=== PATIENT | male | born 1955 | race African-American/Black ===

== ENCOUNTER 2017-07-01 14:00 | Emergency (ER) | payer MEDICARE, OTHER ==
[~2017-07-01] VITALS: Ht 170.2 cm; Wt 84.8 kg
[~2017-07-01 14:00] MED LIST: ASPI-630 PO; FENO134C10 PO; GLIM2TAB2 PO; HYDR-971 PO; IBUP-1060 PO; LISI2.5T PO; METF-153; METF500T4 PO; NAPR550T PO; SIMV40TA3 PO
[2017-07-01] MEDS ORDERED: 0.9 % SODIUM CHLORIDE 10 ML DISP.SYRIN. IV PRN (14:15)
--- NOTE | 2017-07-01 14:24 | PHYS DOC ---
Past Medical History Past Medical History: CAD, Diabetes-Type II, High Cholesterol, Other Additional Past Medical Histor: right leg fracture Past Surgical History: Other Additional Past Surgical Histo: inguinal hernia, heart cath Alcohol Use: None Drug Use: None Adult General Chief Complaint Chief Complaint: FLANK PAIN [facility] HPI This patient is a pleasant 62-year-old male with history of hypertension, type 2 diabetes on oral medications, history of heart disease presents with a three- week history of right flank pain. Patient says the flank pain began spontaneously at rest while he was laying down. Patient's flank pain is radiating from the lateral flank to the right lower abdomen. It is described as a dull aching is worse with movements and he cannot control. He describes some mild nausea without vomiting diarrhea or chills. He denies any UTI symptoms or urgency frequency or hematuria. He denies any fevers or rashes. Patient denies any direct trauma to his abdomen or pelvis. Patient denies any lightheaded or dizziness at this time. He has had chest pain the past but nothing in the last several weeks. He admits to no travel outside the country, no changes in medications, although his sugars been markedly elevated greater than 300. Patient's been taking his medications as prescribed. He has been taking Naprosyn with some degree of success that the pain will go with 4-6 hours in the return without change. my right lower quadrant/right flank pain differential diagnosis Acute pancreatitis. Appendicitis. Acute hepatitis. Peptic ulcer disease. Nonulcer dyspepsia. Irritable bowel disease. Functional gallbladder disorder. Sphincter of Oddi dysfunction. Diseases of the right kidney. Right-sided pneumonia. Viqq-Dmmg-Nvghqr syndrome Subhepatic or intraabdominal abscess. Perforated viscus. Cardiac ischemia. Black spider envenomation Pyonephritis, UTI, kidney stone. This is the differential diagnosis I considered upon arrival. l. Review of Systems Review of Systems Constitutional: Denies fever or chills [] Eyes: Denies change in visual acuity, redness, or eye pain [] HENT: Denies nasal congestion or sore throat [] Respiratory: Denies cough or shortness of breath [] Cardiovascular: No additional information not addressed in HPI [] GI: Denies abdominal pain, nausea, vomiting, bloody stools or diarrhea [] : Denies dysuria or hematuria [] Musculoskeletal: Denies back pain or joint pain [] Integument: Denies rash or skin lesions [] Neurologic: Denies headache, focal weakness or sensory changes [] Endocrine: Denies polyuria or polydipsia [] Current Medications Current Medications Current Medications Medications (Trade) Dose Ordered Sig/Betzaida Start Time Stop Time Status Last Admin Dose Admin Hydromorphone HCl (Dilaudid) 1 mg PRN Q15MIN PRN 07/01/17 14:15 07/02/17 14:14 07/01/17 15:10 1 MG Ketorolac Tromethamine (Toradol) 30 mg 1X ONCE 07/01/17 14:30 07/01/17 14:31 DC 07/01/17 14:35 30 MG Ondansetron HCl (Zofran) 4 mg 1X ONCE 07/01/17 15:45 07/01/17 15:46 DC 07/01/17 15:37 4 MG Promethazine HCl 12.5 mg/Sodium Chloride 50.5 ml @ 101 mls/hr 1X ONCE 07/01/17 16:00 07/01/17 16:29 DC 07/01/17 15:58 101 MLS/HR Sodium Chloride (Normal Saline Flush) 10 ml QSHIFT PRN 07/01/17 14:15 07/01/17 14:34 10 ML Allergies Allergies Allergies Coded Allergies Type Severity Reaction Last Updated Verified No Known Drug Allergies 10/02/16 No Physical Exam Physical Exam Constitutional: Well developed, well nourished, no acute distress, non-toxic appearance. [] HENT: Normocephalic, atraumatic, bilateral external ears normal, oropharynx moist, no oral exudates, nose normal. [] Eyes: PERRLA, EOMI, conjunctiva normal, no discharge. [] Neck: Normal range of motion, no tenderness, supple, no stridor. [] Cardiovascular:Heart rate regular rhythm, no murmur [] Lungs & Thorax: Bilateral breath sounds clear to auscultation [] Abdomen: Bowel sounds normal, soft, no tenderness, no masses, no pulsatile masses. [] Skin: Warm, dry, no erythema, no rash. [] Back: No tenderness, no CVA tenderness. [] Extremities: No tenderness, no cyanosis, no clubbing, ROM intact, no edema. [] Neurologic: Alert and oriented X 3, normal motor function, normal sensory function, no focal deficits noted. [] Psychologic: Affect normal, judgement normal, mood normal. [] Current Patient Data Vital Signs Vital Signs Date Time Temp Pulse Resp B/P (MAP) Pulse Ox O2 Delivery O2 Flow Rate FiO2 07/01/17 15:16 60 10 141/85 (103) 94 07/01/17 15:10 Room Air 07/01/17 14:05 98.0 98.0 Lab Values Laboratory Tests Test 07/01/17 14:15 White Blood Count 7.6 x10^3/uL (4.0-11.0) Red Blood Count 5.57 x10^6/uL (4.30-5.70) Hemoglobin 13.2 g/dL (13.0-17.5) Hematocrit 41.5 % (39.0-53.0) Mean Corpuscular Volume 75 fL (79-100) L Mean Corpuscular Hemoglobin 24 pg (25-35) L Mean Corpuscular Hemoglobin Concent 32 g/dL (31-37) Red Cell Distribution Width 14.5 % (11.5-14.5) Platelet Count 232 x10^3/uL (140-400) Neutrophils (%) (Auto) 58 % (31-73) Lymphocytes (%) (Auto) 35 % (24-48) Monocytes (%) (Auto) 5 % (0-9) Eosinophils (%) (Auto) 1 % (0-3) Basophils (%) (Auto) 1 % (0-3) Neutrophils # (Auto) 4.4 x10^3uL (1.8-7.7) Lymphocytes # (Auto) 2.6 x10^3/uL (1.0-4.8) Monocytes # (Auto) 0.4 x10^3/uL (0.0-1.1) Eosinophils # (Auto) 0.1 x10^3/uL (0.0-0.7) Basophils # (Auto) 0.1 x10^3/uL (0.0-0.2) Sodium Level 140 mmol/L (136-145) Potassium Level 4.6 mmol/L (3.5-5.1) Chloride Level 103 mmol/L (98-107) Carbon Dioxide Level 30 mmol/L (21-32) Anion Gap 7 (6-14) Blood Urea Nitrogen 15 mg/dL (8-26) Creatinine 0.8 mg/dL (0.7-1.3) Estimated GFR (Cockcroft-Gault) 119.3 Glucose Level 315 mg/dL (70-99) H Calcium Level 8.2 mg/dL (8.5-10.1) L Total Bilirubin 0.3 mg/dL (0.2-1.0) Direct Bilirubin 0.1 mg/dL (0.0-0.2) Aspartate Amino Transferase (AST) 22 U/L (15-37) Alanine Aminotransferase (ALT) 40 U/L (16-63) Alkaline Phosphatase 52 U/L (46-116) Troponin I Quantitative 0.017 ng/mL (0.000-0.055) Total Protein 6.0 g/dL (6.4-8.2) L Albumin 3.2 g/dL (3.4-5.0) L Lipase 312 U/L (73-393) Acetone Level Neg (NEG) Laboratory Tests 07/01/17 14:15 Laboratory Tests 07/01/17 14:15 EKG EKG EKG timed to 20 3 PM 07/01/[address] House demonstrates normal sinus rhythm heart rate of 81 IL interval of 162 which is normal QRS width is normal 86 QTC which is normal for 16 patient demonstrates some evidence of incomplete right bundle-branch block with a RR prime in V1 he does have some upsloping ST segment changes in V2 V3 we will verify the patient is not new. [] Since EKG compared with one from 10/02/2016 with complete same morphology. Unchanged Radiology/Procedures Radiology/Procedures [] IMAGING REPORT Signed PATIENT: DENI GONZALEZ ACCOUNT: [id number] : 1955 LOCATION: ER AGE: 62 SEX: M EXAM STATUS: REG ER ORD. PHYSICIAN: LAURE HOUSE MD REASON: right flank pain PROCEDURE: CT ABDOMEN PELVIS WO CONTRAST PQRS STATEMENT: One or more of the following in the visualized dose reduction techniques were utilized for this study: 1. Automatic exposure control, 2. Adjustment of the mA and/or kV according to patient size, 3. Use of iterative reconstruction technique CT ABDOMEN/PELVIS Indication:rt flank pain x 25 days, hx inguinal hernia repair, no priors Technique: Multiple contiguous axial images were obtained through the abdomen and pelvis. Coronal and sagittal reformations were created. Findings: The kidneys are normal in size. There is no evidence for hydronephrosis. There is no nephrolithiasis or ureteral calculus. Ureters are not dilated. The urinary bladder is unremarkable. The heart size is normal. The lung bases are clear.Evaluation of the abdominal viscera is limited in the absence of IV contrast. The liver and spleen are normal in size. The gallbladder is nondistended. The pancreas, and adrenal glands are within normal limits. There is no abdominopelvic ascites. Abdominal aorta is normal in caliber. .The bowel loops are normal in caliber. The appendix is normal.No destructive osseus lesions are identified. Impression: No evidence for obstructive uropathy. Electronically signed by: Reji Macdonald MD (07/01/2017 3:13 PM) [facility] [place] DICTATED and SIGNED BY: REJI MACDONALD MD DATE: 07/01/17 1513 CC: LAURE HOUSE MD; GABINO GARCIA MD ~ Course & Med Decision Making Course & Med Decision Making Pertinent Labs and Imaging studies reviewed. (See chart for details) Patient is a pleasant 62-year-old male with a three-week history of flank pain getting progressively worse. It is likely muscular skeletal in nature but given the location of the right radiation of this particular pain I will ensure that is not an issue with his abdominal aorta or an issue with his gallbladder is pancreas his bowel or his system. At this point my plan is to give him fluids antiemetics and signed for pain as he says his pain is 8 of 10 the goals due to a 4 of 10. He is not peritoneal on exam. His no guarding rebound or organomegaly this no Hernandez's or McBurney's point is to palpation. Patient denies any fevers chills or jaundice. Time is now 3 PM Patient tells me that their symptoms given during CC are improved. We reviewed labs labs returned at this time demonstrated an elevated glucose level which is likely secondary to stress and poorly managed diabetes. His acetone level is negative he has no anion gap. Patient still having some mild nausea. He is given a dose of Phenergan IV 12.5 mg as also received 1 L of fluids and 2 mg of IV Dilaudid. CT abdomen pelvis is still pending I'm is now 4 PM patient is resting quietly pain is resolved. Patient is still not produced urinalysis CT abd pelvis is still pending. Time is now 4:58 PM patient feels markedly better and in fact sleeping at this time. Pain is [address] patient still producing urine[address] CT scan abdomen and pelvis read and reviewed by me and read by radiology demonstrates no evidence of acute urinary obstruction, kidney stone, pyonephritis, pancreatic tightness, or appendicitis. Patient understands that he will have a straight catheter placed and him if he does not produce urine sample. At time we'll turn care over to Dr. Ye pending urinalysis patient is still yet to have provided. He is adamant that he can provide a urine test Jaskaran Disclaimer Andrewon Disclaimer This electronic medical record was generated, in whole or in part, using a voice recognition dictation system. Departure Departure Impression: Primary Impression: Essential hypertension Additional Impressions: DM (diabetes mellitus) Abdominal pain Disposition: HOME, SELF-CARE Condition: IMPROVED Referrals: GABINO GARCIA MD (PCP) Patient Instructions: Abdominal Pain (Nonspecific), Flank Pain Additional Instructions: Please return for any new or increasing symptoms, or if you've any questions concerns, night sweats weight loss sudden loss of consciousness or any question concerns. About your treatment or if your symptoms are not treated well with the medications prescribed. Scripts Ondansetron (ZOFRAN ODT) 4 Mg Tab.rapdis 4 MG PO BID Y for NAUSEA/VOMITING for 7 Days, #14 TAB Prov: LAURE HOUSE MD 07/01/17 Naproxen (NAPROSYN) 500 Mg Tablet 1 TAB PO BID, #14 TAB 1 Refill Prov: LAURE HOUSE MD 07/01/17 Hydrocodone Bit/Acetaminophen (HYDROCODONE-APAP 5-325 ) 1 Each Tablet 1-2 TAB PO PRN Q6HRS Y for PAIN for 5 Days, #10 TAB 0 Refills Prov: LAURE HOUSE MD 07/01/17 Problem Qualifiers LAURE HOUSE MD Jul 01, 2017 14:24
[2017-07-01] MEDS ORDERED: ONDANSETRON PF 4 MG/2 ML VIAL. IV ONE ×2 (14:30→15:45)
[2017-07-01] MEDS ORDERED: KETOROLAC TROMETHAMINE 30 MG/ML INJ. IV ONE (14:30)
[2017-07-01] MEDS ORDERED: IV NORMAL SALINE 1000ML BAG 1,000 ML IV SCH (14:30)
[2017-07-01] MEDS: HYDROmorphone 2 MG/ML VIAL IV/SQ PRN ×2 (14:34→15:10)
[2017-07-01 14:36] LABS: BASO # 0.1 x10^3/uL (0.0-0.2); BASO % 1 % (0-3); EOS % 1 % (0-3); HEMATOCRIT 41.5 % (39.0-53.0); HEMOGLOBIN 13.2 g/dL (13.0-17.5); LYMPH # 2.6 x10^3/uL (1.0-4.8); LYMPH % 35 % (24-48); MEAN CORPUSCULAR HEMOGLOBIN 24 pg (25-35); MEAN CORPUSCULAR HGB CONC 32 g/dL (31-37); MEAN CORPUSCULAR VOLUME 75 fL (79-100); MONO % 5 % (0-9); NEUT % 58 % (31-73); PLATELET COUNT 232 x10^3/uL (140-400); RED BLOOD COUNT 5.57 x10^6/uL (4.30-5.70); RED CELL DISTRIBUTION WIDTH 14.5 % (11.5-14.5); WHITE BLOOD COUNT 7.6 x10^3/uL (4.0-11.0)
[2017-07-01 14:44] LABS: ANION GAP 7 (6-14); BLOOD UREA NITROGEN 15 mg/dL (8-26); CALCIUM 8.2 mg/dL (8.5-10.1); CARBON DIOXIDE 30 mmol/L (21-32); CHLORIDE 103 mmol/L (98-107); CREATININE 0.8 mg/dL (0.7-1.3); GFR 119.3; GLUCOSE 315 mg/dL (70-99); POTASSIUM 4.6 mmol/L (3.5-5.1); SODIUM 140 mmol/L (136-145)
[2017-07-01 14:47] LABS: ACETONE NEG (NEG)
[2017-07-01 14:52] LABS: ALBUMIN 3.2 g/dL (3.4-5.0); ALK PHOS 52 U/L (46-116); ALT (SGPT) 40 U/L (16-63); AST (SGOT) 22 U/L (15-37); DIRECT BILIRUBIN 0.1 mg/dL (0.0-0.2); TOTAL BILIRUBIN 0.3 mg/dL (0.2-1.0)
[2017-07-01] MEDS ORDERED: PROMETHAZINE 12.5 MG in IV NORMAL SALINE 50ML 50 ML IV ONE (16:00)
--- NOTE | 2017-07-01 16:34 | RAD ---
PQRS STATEMENT: One or more of the following in the visualized dose reduction techniques were utilized for this study: 1. Automatic exposure control, 2. Adjustment of the mA and/or kV according to patient size, 3. Use of iterative reconstruction technique CT ABDOMEN/PELVIS Indication:rt flank pain x 25 days, hx inguinal hernia repair, no priors Technique: Multiple contiguous axial images were obtained through the abdomen and pelvis. Coronal and sagittal reformations were created. Findings: The kidneys are normal in size. There is no evidence for hydronephrosis. There is no nephrolithiasis or ureteral calculus. Ureters are not dilated. The urinary bladder is unremarkable. The heart size is normal. The lung bases are clear.Evaluation of the abdominal viscera is limited in the absence of IV contrast. The liver and spleen are normal in size. The gallbladder is nondistended. The pancreas, and adrenal glands are within normal limits. There is no abdominopelvic ascites. Abdominal aorta is normal in caliber. .The bowel loops are normal in caliber. The appendix is normal.No destructive osseus lesions are identified. Impression: No evidence for obstructive uropathy. Electronically signed by: Reji Macdonald MD (07/01/2017 3:13 PM) [facility] [place] [facility]
[2017-07-01] MEDS ORDERED: NAPR500T PO (17:08)
[2017-07-01] MEDS ORDERED: ONDA4TAB10 PO (17:08)
[2017-07-01] MEDS ORDERED: HYDR-2758 PO (17:08)
[2017-07-01 17:31] LABS: BILIRUBIN,URINE NEGATIVE (NEG); GLUCOSE,URINE >=1000 mg/dL (NEG); NITRITE,URINE NEGATIVE (NEG); PH,URINE 5.5; PROTEIN,URINE NEGATIVE (NEG-TRACE); UROBILINOGEN,URINE 0.2 mg/dL (0.2 mg/dL)
[2017-07-01 17:46] VITALS: BP 138/85
[2017-07-01 17:48] LABS: BACTERIA,URINE 0 /HPF (0-FEW); RBC,URINE 0 /HPF (0-2); WBC,URINE 0 /HPF (0-4)
--- NOTE | 2017-07-02 11:28 | EKG ---
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
== END 2017-07-01 18:00 | disposition home or self-care (01) ==
LOC: ER 14:00
DX: R10.9 Unspecified abdominal pain (principal); R11.0 Nausea; I25.10 Atherosclerotic heart disease of native coronary artery without angina pectoris; E11.9 Type 2 diabetes mellitus without complications; E78.00 Pure hypercholesterolemia, unspecified; I11.9 Hypertensive heart disease without heart failure
CPT/HCPCS: 36415; 74176; 80048; 80076; 81001; 82010; 83036; 83690; 84484; 85027; 93005; 96361; 96365; 96375; 96376; 99285; J1170; J1885; J2405; J2550; J7030

== ENCOUNTER → 2019-08-19 | Outpatient (CLI) | payer MEDICARE, MEDICAID ==
[2017-11-29 14:42] VITALS: BP 117/78
[~2019-08-19] MED LIST changes: +CONTRAST GIVEN. MC PRN; +HYDR-2761 PO; +HYDR-3164 PO; -HYDR-971 PO; +IOHEXOL 240 MG/ML 50ML VIAL. PO ONE; +IOHEXOL 300 MG/ML 100ML VIAL. IV ONE; +METF500T16 PO; -METF500T4 PO; +NAPR-682 PO; +NAPR-683 PO; -NAPR550T PO; +ONDA4TAB10 PO
--- NOTE | 2019-08-19 16:39 | RAD ---
Examination: CT ABD PELV W/ORAL IV CONTRAST History: Recurrent inguinal hernias Comparison/Correlation: 07/01/2017 CT abdomen and pelvis without contrast Findings: Axial images of the abdomen and pelvis were obtained following IV and oral contrast. Sagittal and coronal reformatted images were provided. Visualized lung bases are clear. Liver, spleen, pancreas, adrenal glands, and kidneys are unremarkable. Right hepatic lobe inferior tip 1 cm diameter cyst is present and stable. Small sliding hiatal hernia is suggested. Moderate quantity of stool involves the proximal colon. No bowel obstruction. No extraluminal gas. No ascites or pelvic free fluid. Small umbilical hernia contains omental fat. No inflammatory change about the cecum. Bladder is decompressed with circumferential wall thickening may represent decompressed state and contraction or spasm. There is a very small right inguinal hernia containing omental fat. No left inguinal hernia. Bilateral moderate size hydroceles are evident. Bony structures are unremarkable. Impression: Small right inguinal hernia contains a small quantity of omental fat. Bilateral moderate size scrotal hydroceles. PQRS Compliance Statement: One or more of the following individualized dose reduction techniques were utilized for this examination: 1. Automated exposure control 2. Adjustment of the mA and/or kV according to patient size 3. Use of iterative reconstruction technique Electronically signed by: Ed Pickens MD (08/19/2019 4:36 PM) [facility]
== END | disposition home or self-care (01) ==
LOC: CT 13:46
PROVIDERS: ATTEND Specialist
DX: K40.91 Unilateral inguinal hernia, without obstruction or gangrene, recurrent (principal); K76.89 Other specified diseases of liver; N43.3 Hydrocele, unspecified
CPT/HCPCS: 74177; Q9966; Q9967

== ENCOUNTER → 2019-09-04 | Day surgery (SDC) | payer OTHER, MEDICAID ==
[2017-11-29 14:42] VITALS: BP 117/78
[~2019-09-04] MED LIST changes: +BUPIVACAINE-EPI 0.5%-1:200000 MPF 30 ML VIAL. INJ ONE; -CONTRAST GIVEN. MC PRN; +DEXAMETHASONE SOD PHOS 4 MG/ML VIAL ONE; -GLIM2TAB2 PO; +GLIM2TAB3 PO; +HYDROmorphone 2 MG/ML VIAL IV PRN; -IOHEXOL 240 MG/ML 50ML VIAL. PO ONE; -IOHEXOL 300 MG/ML 100ML VIAL. IV ONE; +IV RINGERS,LACTATED 1000ML 1,000 ML IV SCH; +LIDOCAINE 1% PF 2 ML VIAL. ID PRN; +LIDOCAINE 2% PF 5 ML VIAL. ONE; +MIDAZOLAM HCL/PF 2 MG/2 ML VIAL. ONE; +MORPHINE SULFATE 2 MG/ML VIAL. IV PRN; +ONDANSETRON PF 4 MG/2 ML VIAL. IV PRN; +ONDANSETRON PF 4 MG/2 ML VIAL. ONE; +PROCHLORPERAZINE 10 MG/2 ML VIAL. IV PRN; +PROPOFOL 0 ML IV ONE; +ROCURONIUM 50 MG/5 ML VIAL. ONE; +SIMV40TA18 PO; -SIMV40TA3 PO; +fentaNYL PF VIAL 100 MCG/2 ML VIAL IV PRN; +fentaNYL PF VIAL 100 MCG/2 ML VIAL ONE
--- NOTE | 2019-09-04 06:21 | HP ---
ADMIT DATE: HISTORY OF PRESENT ILLNESS: The patient is referred because of left inguinal pain. History is that apparently he had about 8-10 years ago, left inguinal hernia repair. Recently in the last few months, he has had pain in the left groin and is causing him more and more discomfort. He therefore is sent to me. He has had no other difficulties, but some abdominal distress and he denies any obstipation or vomiting. PAST MEDICAL HISTORY: Did show normal childhood diseases. He does have diabetes for which he takes insulin shots. He has hypertension, but does not take medicine for it often and otherwise has no diseases to his knowledge and has had no other surgery other than the left inguinal herniorrhaphy. ALLERGIES: He has no allergies. FAMILY HISTORY: Negative. SOCIAL HISTORY: Shows he does not drink, use drugs or alcohol. REVIEW OF SYSTEMS: All negative except for the pain in the left groin periodically with increasing use. PHYSICAL EXAMINATION: GENERAL: Shows an alert male, in no acute distress. HEAD, EYES, EARS NOSE AND THROAT: Grossly normal, though he did not take off his sunglasses. NECK: Supple. Trachea was in midline. CHEST: Clear bilaterally to auscultation. HEART: On the auscultation of the heart, there was a rate 70 beats per minute and was regular, but he did have a systolic murmur at the mitral and aortic valve area, mostly loudest area within the second intercostal space on the right and it was about a 3/6 systolic murmur. ABDOMEN: Negative. He did have the old scar previous left inguinal hernia surgery. I could not demonstrate a hernia on either the right or left areas and there was no bulge or anything that would suggest that. The history was difficult to obtain and as such, cannot make a diagnosis of that at present. We will plan to get a CT of the abdomen and pelvis. IMPRESSION: 1. Left inguinal pain, etiology not determined. 2. Diabetes. VALENTINE CUENCA MD DR: GOMEZ/nts JOB#: [id number] / [id number]
== END ==
LOC: SURG 09:03
PROVIDERS: ATTEND Specialist
DX: K40.90 Unilateral inguinal hernia, without obstruction or gangrene, not specified as recurrent (principal)
CPT/HCPCS: J1100; J2001; J2250; J2405; J2704; J3010; J3490

== ENCOUNTER → 2020-12-10 | Outpatient (CLI) | payer MEDICARE, MEDICAID ==
[2017-11-29 14:42] VITALS: BP 117/78
[~2020-12-10] MED LIST changes: -BUPIVACAINE-EPI 0.5%-1:200000 MPF 30 ML VIAL. INJ ONE; -DEXAMETHASONE SOD PHOS 4 MG/ML VIAL ONE; -GLIM2TAB3 PO; +GLIM2TAB7 PO; -HYDROmorphone 2 MG/ML VIAL IV PRN; +IOHEXOL 240 MG/ML 50ML VIAL. PO ONE; +IOHEXOL 300 MG/ML 100ML VIAL. IV ONE; -IV RINGERS,LACTATED 1000ML 1,000 ML IV SCH; -LIDOCAINE 1% PF 2 ML VIAL. ID PRN; -LIDOCAINE 2% PF 5 ML VIAL. ONE; -MIDAZOLAM HCL/PF 2 MG/2 ML VIAL. ONE; -MORPHINE SULFATE 2 MG/ML VIAL. IV PRN; -ONDANSETRON PF 4 MG/2 ML VIAL. IV PRN; -ONDANSETRON PF 4 MG/2 ML VIAL. ONE; -PROCHLORPERAZINE 10 MG/2 ML VIAL. IV PRN; -PROPOFOL 0 ML IV ONE; -ROCURONIUM 50 MG/5 ML VIAL. ONE; -fentaNYL PF VIAL 100 MCG/2 ML VIAL IV PRN; -fentaNYL PF VIAL 100 MCG/2 ML VIAL ONE
[2020-12-10 10:44] LABS: CREATININE 0.8 mg/dL (0.7-1.3); GFR 118.1
--- NOTE | 2020-12-10 17:47 | RAD ---
EXAM: CT Abdomen and Pelvis with IV contrast INDICATION: Abdominal pain. History of right hernia surgery. TECHNIQUE: Multi-detector row CT images were acquired from the lung bases through the abdomen and pel vis with the use of IV contrast. Sagittal and coronal images were acquired from the transaxial data. All CT scans performed at this facility utilize dose optimization techniques as appropriate to the ex am, including the following: Automated exposure control and adjustment of the mA and/or KV according to patient size (this includes techniques or standardized protocols for targeted exams where dose is indication/reason for exam). IV CONTRAST: Administered ORAL CONTRAST: Administered COMPARISON: Contrast-enhanced abdomen pelvis CT of 08/19/2019 FINDINGS: LOWER CHEST: Calcified hilar lymph nodes especially on the left are present. Lung bases otherwise are unremarkable. Bilateral diaphragmatic elevation is present. LIVER: 1 cm low-density lesion in hepatic segment 6 is unchanged. This is statistically likely to be a cyst. Liver otherwise unremarkable. BILIARY SYSTEM: Gallbladder is unremarkable. Bile ducts are not dilated. PANCREAS: Unremarkable SPLEEN: Unremarkable ADRENALS: Unremarkable KIDNEYS & URETERS: Superior pole right renal cortical scarring. No hydronephrosis or radiopaque ston es. BLADDER: Diffuse urinary bladder wall thickening remains present. REPRODUCTIVE ORGANS: Prostate gland measures 4.8 cm in diameter. GASTROINTESTINAL: The stomach, small bowel, and colon are are nonobstructed. There is more stool in t he large bowel in the interval.. The appendix is normal. MESENTERY/PERITONEUM/RETROPERITONEUM: In the right inguinal region are newly noted ovoid low-density soft tissue masses replacing the fat containing inguinal hernia noted previously. These measure 2.4 ( image 90 of series 2) and 2.6 cm (image 87 of series 2). These likely reflect interval surgical hinojosa es from right inguinal hernia repair. VASCULAR: Unremarkable LYMPH NODES: There is mild prominence to the bilateral superficial inguinal lymph nodes. No bulky ad enopathy. OSSEOUS & SOFT TISSUES: L4 intraosseous hemangiomas unchanged. No acute or aggressive appearing osse ous lesions noted. IMPRESSION: Interval surgical changes from right inguinal hernia repair with no evidence of recurrent hernia and no acute bowel pathology shown on contrast enhanced CT. However, there remain multiple reactive super ficial inguinal lymph nodes. Correlate for any relevance to patient's abdominal pain. He also has per sistently thickened urinary bladder wall which is nonspecific. Correlate for any evidence of cystitis . Electronically signed by: Jarrell Goss MD (12/10/2020 5:45 PM) [id number]
== END ==
LOC: CT 09:56
PROVIDERS: ATTEND Internal Medicine
DX: K40.90 Unilateral inguinal hernia, without obstruction or gangrene, not specified as recurrent (principal); R59.9 Enlarged lymph nodes, unspecified
CPT/HCPCS: 36415; 74177; 82565; 84520; Q9966; Q9967

== ENCOUNTER → 2021-01-11 | Outpatient (CLI) | payer MEDICARE, MEDICAID ==
[2017-11-29 14:42] VITALS: BP 117/78
[~2021-01-11] MED LIST changes: +AMIT25TA PO; +DAPA10TA PO; +INSU100I30 SQ; +INSU100V31 SQ; -IOHEXOL 240 MG/ML 50ML VIAL. PO ONE; -IOHEXOL 300 MG/ML 100ML VIAL. IV ONE; +LOSA25TA54 PO
--- NOTE | 2021-01-11 12:53 | PDOC1 ---
INITIAL PAIN CONSULT DATE OF SERVICE: DOS: DATE: 01/11/21 TIME: 12:45 CHIEF COMPLAINT: Chief Complaint: Right inguinal pain HISTORY OF PRESENT ILLNESS: 65-year-old male presents with history of pain in the right inguinal region status post inguinal herniorrhaphy approximately 1 year ago. Patient reports that since that time he has had persistent pain in the right inguinal region has been examined by his primary care physician as well as his operating surgeon with no recurrent hernia and has had CT scan showing the same. Patient reports still significant pain since the time of the surgery never got better reports is worse with changing positions bending especially stooping reaching down to tie his shoe changing from a seated to a standing position walking and raising his leg on the right side patient reports it wakes him sleep only 3 times at night does not affect his bowel bladder control but does affect his body to walk specially getting up or squatting down. Patient reports he has been taking [id number] ibuprofen as well as Tylenol which did not decrease in the pain significantly describes pain is constant and sharp stabbing worse with activity feels swollen in the right groin as well patient reports immediate radiation into the medial upper thigh as well as the anterior thigh only to the superior aspect. Patient reports no pain on the left side and he has had a previous hernia repaired many years ago on the left as well. Patient rates his disability rating 0-10 10 being the worst is a 7 with recreational activities 5 with sexual behavior 1 with self-care and life support activities. Patient's CT scan shows some multiple reactive superficial inguinal lymph nodes but no evidence of recurrent hernia no acute bowel pathology. Patient has been doing some stretching of the right leg and groin daily as well which is not decreasing the pain. PAST MEDICAL HISTORY: PMH: Diabetes, hypertension, bronchitis, arthritis, syncope PREVIOUS SURGERIES: Past Surgical Hx: Left inguinal hernia repair 2001, right inguinal repair 2019 CURRENT MEDICATIONS: Current Meds: Active Scripts Medications Dose Route/Sig Max Daily Dose Days Date Category Novolog (Insulin Aspart) 100 Unit/1 Ml Vial 10 Unit SQ TID 01/11/21 Reported Losartan Potassium (Losartan Potassium) 25 Mg Tablet 25 Mg PO DAILY 01/11/21 Reported Amitriptyline Hcl 25 Mg Tablet 1 Tab PO QHS 01/11/21 Reported Tresiba Flextouch U-100 (Insulin Degludec) 100 Unit/1 Ml Insuln.pen 100 Unit SQ DAILY 01/11/21 Reported Farxiga (Dapagliflozin Propanediol) 10 Mg Tablet 10 Mg PO DAILY 01/11/21 Reported Naprosyn (Naproxen) 500 Mg Tablet 1 Tab PO BID 07/01/17 Rx Lisinopril 2.5 Mg Tablet 1 Tab PO DAILY 07/17/14 Reported Aspirin 81 Mg Tab.chew 81 Mg PO 07/16/14 Reported ALLERGIES; Allergies: Coded Allergies: No Known Drug Allergies (Unverified , 10/02/16) FAMILY HISTORY: Family Hx: Diabetes, cancer SOCIAL HISTORY: Social Hx: Patient does not drink alcohol does not smoke or use any illegal illicit or recreational drugs is single lives locally in [facility] REVIEW OF SYSTEMS: ROS: Positive for those items mentioned in history of present illness, all systems are reviewed, otherwise negative ,and are complete full and well-documented on patient's chart. PHYSICAL EXAM: VS: Blood pressure is 152/98 pulse 80 respiration 16 temperature 98.7 F height is 5 feet 7 inches weight 191 pounds PE: PHYSICAL EXAMINATION: GENERAL: The patient is awake, alert, oriented, appropriate, very pleasant d emeanor HEENT: Shows normocephalic, atraumatic. Extraocular movements are intact and symmetrical. Patient wearing eyeglasses. Oral cavity: Mucous membranes moist and pink. Dentition is intact. NECK: Shows anterior throat supple without palpable lymphadenopathy noted. Swallow reflex symmetrical. CHEST: Shows normal on inspection. Breath sounds are clear bilaterally, no rales rhonchi or wheezes auscultated bilaterally. HEART: Shows S1, S2 clear. No murmurs auscultated. ABDOMEN: Soft, nontender, nondistended, obese. No palpable organomegaly is noted. No rebound or guarding demonstrated. Patient's right inguinal region shows well-healed surgical scar as does the left. With the right on palpation shows very firm tender region below the surgical scar and medial to the surgical scar as well with some minor radiation into the anterior thigh with deeper palpation no obvious masses are palpated no recurrent hernia with bearing down. BACK: Shows spine grossly in the midline. Normal-appearing cervical lordotic curvature. Cervical spine shows full rotation motion both laterally as well as full extension full forward flexion without difficulty. There is slightly increased thoracic kyphosis, some minor flattening of the lumbar lordotic curvature. Lumbar paraspinous muscles show symmetrical on inspection, on palpation shows some moderate tenderness diffusely throughout the upper, middle and lower distribution of the paraspinous muscles, but without specific trigger points, without radiation of pain. The patient has good rotational motion of the lumbar spine, both laterally as well as extension and flexion without significant difficulty. No tenderness over the spinous processes, sacrum or sacroiliac regions. EXTREMITIES: Lower extremities show deep tendon reflexes 2+ in the patellar and tendo calcaneus tendons. Motor exam is 5 on a scale of 5 with right dorsiflexion, extension, quadriceps and hamstring flexion and 5/5 on the left. Peripheral pulses are 1+ posterior tibial. No peripheral edema is noted bilaterally. Lower extremities are warm and dry to touch, equal in color and appearance. SKIN: Shows warm and dry, good turgor. No edema. No sores, rashes or bruising throughout. IMPRESSION: Impression: 65-year-old male with approximate 1 year history right groin pain status post inguinal herniorrhaphy with chronic postoperative pain condition. Diabetes Hypertension Bronchitis Arthritis Plan: Options were discussed with the patient including conservative medical management as physical therapies interventional techniques and he like to pursue interventional techniques. We discussed a ilioinguinal nerve block on the right using description as well as anatomical models to describe the procedure. Patient will wait for preauthorization with his insurance provider and we will have him return for right ilioinguinal nerve block at that time. In the meantime patient continue with stretching strength exercises and [id number] analgesics as currently. CHEL SORIA MD Jan 11, 2021 12:53
== END | disposition home or self-care (01) ==
LOC: PNCL 11:13
PROVIDERS: ATTEND Anesthesiology
DX: R10.30 Lower abdominal pain, unspecified (principal); E11.9 Type 2 diabetes mellitus without complications; I10 Essential (primary) hypertension; M19.90 Unspecified osteoarthritis, unspecified site; E78.00 Pure hypercholesterolemia, unspecified; Z79.82 Long term (current) use of aspirin; Z79.4 Long term (current) use of insulin; Z79.899 Other long term (current) drug therapy; Z98.890 Other specified postprocedural states; Z87.891 Personal history of nicotine dependence
CPT/HCPCS: G0463

== ENCOUNTER → 2021-02-15 | Outpatient (CLI) | payer MEDICARE, MEDICAID ==
[2017-11-29 14:42] VITALS: BP 117/78
[~2021-02-15] MED LIST changes: +BUPIVACAINE MPF 0.25% 10 ML VIAL. ONE; +IBUP-1027 PO; +methylPREDNISolone ACETATE 40 MG/ML VIAL. ONE
--- NOTE | 2021-02-15 12:54 | PDOC ---
Progress Note - Pain Clinic Date of Service: DOS: DATE: 02/15/21 TIME: 12:49 Diagnosis: Dx: Chronic postoperative pain status post right inguinal herniorrhaphy Left shoulder joint pain with osteoarthritis History or Present Illness: HPI: 66-year-old male returns for follow-up status post initial evaluation and preauthorization with his insurance provider for ilioinguinal nerve block on the right. Patient reports still significant pain in the right groin worse with bending sitting straightening his leg walking and is waking him from sleep about every 6-7 hours. Patient reports no significant change and has obtained preauthorization with his insurance provider would like to proceed today with ilioinguinal nerve block on the right patient rates the pain as a 10 on scale 10 is worse over the past week 9 on average 9 its least is a 9 today. Patient describes its sharp and tight giving him some sensation of instability with the right leg with walking as well. Patient reports no new motor or sensory deficits or other complaints. Physical Exam: VS: Blood pressure is 155/90 pulse 85 respirations 16 temperature 98.5 F weight is 191 pounds PE: PHYSICAL EXAMINATION: GENERAL: The patient is awake, alert, oriented, appropriate, very pleasant demeanor HEENT: Shows normocephalic, atraumatic. Extraocular movements are intact and symmetrical. Oral cavity: Mucous membranes moist and pink. Dentition is intact. NECK: Shows anterior throat supple without palpable lymphadenopathy noted. Swallow reflex symmetrical. CHEST: Shows normal on inspection. Breath sounds are clear bilaterally, no rales or rhonchi. HEART: Shows S1, S2 clear. No murmurs auscultated. ABDOMEN: Soft, nontender, nondistended, obese. No palpable organomegaly is not ed. No rebound or guarding demonstrated. Patient's right groin shows well- healed surgical scar in the inguinal region. With palpation shows significant tenderness just medial and inferior to the anterior superior iliac spine but without significant radiation. BACK: Shows spine grossly in the midline. Normal-appearing cervical lordotic curvature. There is slightly increased thoracic kyphosis, some minor flattening of the lumbar lordotic curvature. The patient has good rotational motion of the lumbar spine, both laterally as well as extension and flexion without significant difficulty. EXTREMITIES: Lower extremities show deep tendon reflexes 2+ in the patellar and tendo calcaneus tendons. Motor exam is 5 on a scale of 5 with right dorsiflexion, extension, quadriceps and hamstring flexion and 5/5 on the left. Peripheral pulses are 1+ posterior tibial. No peripheral edema is noted bilaterally. Lower extremities are warm and dry to touch, equal in color and appearance. SKIN: Shows warm and dry, good turgor. No edema. No sores, rashes or bruising throughout. Procedure: Procedure: Options were discussed with the patient. Patient chart was reviewed as her current medication regimen updated current review of systems updated today as well. We will proceed with a right ilioinguinal nerve block today. Risk were discussed including but not limited to bleeding infection possibility of intravascular injection sequelae spread local anesthetic numbness side effects steroid medication as well as poor results regarding pain control. Patient understands wished to proceed. Patient will return to the clinic in approximate 2 weeks for follow-up, was counseled as to return appointment activity level, and side effects to be aware of. Medication Injected: Med Injected: Under sterile prep and drape patient in supine position patient's right ilioinguinal region was inspected and using a 25-gauge 1-1/2 inch needle area approximately 1/2 cm medial and 1/2 cm inferior to the anterior superior iliac spine was then injected in a fanlike fashion through the muscular and connective fascia without paresthesia and with negative aspiration prior to injection. A total of 3 cc 0.25% bupivacaine and 40 mg Depo-Medrol was then injected. Patient tolerated the procedure well and had no complications. Condition at Discharge: Condition at Discharge: Condition at discharge stable, patient alert procedure well and had no complications. CHEL SORIA MD Feb 15, 2021 12:54
--- NOTE | 2021-02-15 12:55 | PDOC4 ---
PROCEDURE Procedure Patient was consented for right ilioinguinal nerve block. Risk were discussed including but not limited to bleeding infection possibility of intravascular injection sequelae spread local anesthetic numbness side effects steroid medication and poor results regarding pain control. Patient understands wished to proceed. Under sterile prep and drape patient in supine position patient's right ilioinguinal region was inspected and using a 25-gauge 1-1/2 inch needle area approximately 1/2 cm medial and 1/2 cm inferior to the anterior superior iliac spine was then injected in a fanlike fashion through the muscular and connective fascia without paresthesia and with negative aspiration prior to injection. A total of 3 cc 0.25% bupivacaine and 40 mg Depo-Medrol was then injected. Patient tolerated the procedure well and had no complications. HCEL SORIA MD Feb 15, 2021 12:55
== END | disposition home or self-care (01) ==
LOC: PNCL 11:43
PROVIDERS: ATTEND Anesthesiology
DX: G89.28 Other chronic postprocedural pain (principal); M19.012 Primary osteoarthritis, left shoulder; I25.10 Atherosclerotic heart disease of native coronary artery without angina pectoris; I10 Essential (primary) hypertension; E78.00 Pure hypercholesterolemia, unspecified; E11.9 Type 2 diabetes mellitus without complications; Z79.82 Long term (current) use of aspirin; Z79.4 Long term (current) use of insulin; Z79.899 Other long term (current) drug therapy; Z87.891 Personal history of nicotine dependence; Z98.890 Other specified postprocedural states; Z82.49 Family history of ischemic heart disease and other diseases of the circulatory system; Z83.3 Family history of diabetes mellitus
CPT/HCPCS: 64425; J1030; J3490

== ENCOUNTER → 2021-03-15 | Outpatient (CLI) | payer MEDICARE, MEDICAID ==
[2017-11-29 14:42] VITALS: BP 117/78
[~2021-03-15] MED LIST changes: -methylPREDNISolone ACETATE 40 MG/ML VIAL. ONE; +methylPREDNISolone ACETATE 80 MG/ML VIAL. ONE
--- NOTE | 2021-03-15 11:32 | PDOC ---
Progress Note - Pain Clinic Date of Service: DOS: DATE: 03/15/21 TIME: 11:25 Diagnosis: Dx: Right chronic postoperative pain status post right inguinal herniorrhaphy. Left shoulder joint pain with osteoarthritis left shoulder joint History or Present Illness: HPI: 66-year-old male returns in follow-up status post right ilioinguinal nerve block. Patient reports that 5 days of near 100% improvement in the right inguinal pain. Patient ports after the time he returned but still about 50% improved overall in the right groin and thigh. Patient reports he is increasing his activity with greater ease and comfort walking greater distances doing household activities travel with greater ease as well for the first few days the pain is still decreased but is still present and more noticeable than it was for the first week or so. Patient reports still pain in the right groin is still some radiating pain to the medial right thigh as well also significant pain the left shoulder with rotation of motion and weightbearing is unable to lift his left arm it is waking him from sleep fairly often with the left shoulder. Patient rates his pain as a 9 on scale 10 is worse over the past week 9 on average 8 its least and 8 today. Patient describes the pain in the groin is burning and aching constant can be severe with pain in the shoulder is aching dull pain worse with rotation of motion but better with rest. Patient reports no new motor or sensory deficits or other complaints at this time. Physical Exam: VS: Blood pressure is 156/97 pulse 81 respirations are 16 temperature is 98.3 F weight is 188 pounds. PE: PHYSICAL EXAMINATION: GENERAL: The patient is awake, alert, oriented, appropriate, very pleasant demeanor HEENT: Shows normocephalic, atraumatic. Extraocular movements are intact and symmetrical. Oral cavity: Mucous membranes moist and pink. Dentition is int act. NECK: Shows anterior throat supple without palpable lymphadenopathy noted. Swallow reflex symmetrical. CHEST: Shows normal on inspection. Breath sounds are clear bilaterally. HEART: Shows S1, S2 clear. No murmurs auscultated. ABDOMEN: Soft, nontender, nondistended. No palpable organomegaly is noted. No rebound or guarding demonstrated. Patient shows well-healed surgical scarring at both the right and left ilioinguinal regions. Patient has significant tenderness with palpation over the anterior superior iliac spine on the right as well as just inferior medial to this with moderate to severe tenderness with palpation extending medially approximately 5 cm below the incisional scar. Patient has no specific radiation with direct palpation. BACK: Shows spine grossly in the midline. Normal-appearing cervical lordotic curvature. There is slightly increased thoracic kyphosis, some minor flattening of the lumbar lordotic curvature. EXTREMITIES: Lower extremities show deep tendon reflexes 2+ in the patellar and tendo calcaneus tendons. Motor exam is 5 on a scale of 5 with right dorsiflexion, extension, quadriceps and hamstring flexion and 5/5 on the left. Peripheral pulses are 1+ posterior tibial. No peripheral edema is noted bilaterally. SKIN: Shows warm and dry, good turgor. No edema. No sores, rashes or bruising throughout. Procedure: Procedure: Options were discussed with the patient. Patient's old chart reviews his current medication regimen updated current review of systems updated today as well. We will proceed with a second in the series right ilioinguinal nerve block. Risk were discussed including but not limited to bleeding infection possibility of intravascular injection sequelae spread local anesthetic numbness side effects of steroid medication and portal scarring pain control. Patient understands wished to proceed. Patient return to clinic in approximately 2 weeks for follow-up was counseled as to return appointment activity level and side effects to be aware of. Medication Injected: Med Injected: Patient in supine position under sterile prep and drape patient's right groin was then applied and area medial and inferior by approximately 2 cm from the superior anterior iliac spine was sterilely prepped and draped in usual fashion. Using a 25-gauge 1/2 inch needle, and feeling clear needle "pops" through the myofascial layers, was then injected, after negative aspiration, a solution containing 5 cc 0.25% bupivacaine and 80 mg Depo-Medrol was then injected in a fan like manner. Needle withdrawn and sterile bandage was applied. Patient tolerated procedure well and had no complications. Condition at Discharge: Condition at Discharge: Condition at discharge is stable, patient already procedure well and had no complications. CHEL SORIA MD Mar 15, 2021 11:32
--- NOTE | 2021-03-15 11:33 | PDOC4 ---
PROCEDURE Procedure Patient was consented for a right ilioinguinal nerve block. Risk were discussed including but not limited to bleeding infection possibility of intravascular injection sequelae spread local anesthetic and numbness side effects of steroid medication portals regarding pain control. Patient understands wished to proceed. Patient in supine position under sterile prep and drape patient's right groin was then applied and area medial and inferior by approximately 2 cm from the superior anterior iliac spine was sterilely prepped and draped in usual fashion. Using a 25-gauge 1/2 inch needle, and feeling clear needle "pops" through the myofascial layers, was then injected, after negative aspiration, a solution cont aining 5 cc 0.25% bupivacaine and 80 mg Depo-Medrol was then injected in a fan like manner. Needle withdrawn and sterile bandage was applied. Patient tolerated procedure well and had no complications. CHEL SORIA MD Mar 15, 2021 11:33
== END | disposition home or self-care (01) ==
LOC: PNCL 09:58
PROVIDERS: ATTEND Anesthesiology
DX: G89.28 Other chronic postprocedural pain (principal); M19.012 Primary osteoarthritis, left shoulder; I10 Essential (primary) hypertension; E78.00 Pure hypercholesterolemia, unspecified; E11.9 Type 2 diabetes mellitus without complications; Z79.899 Other long term (current) drug therapy; Z87.891 Personal history of nicotine dependence; Z79.82 Long term (current) use of aspirin; Z79.4 Long term (current) use of insulin; Z98.890 Other specified postprocedural states
CPT/HCPCS: 64425; J1040; J3490

== ENCOUNTER → 2021-04-22 | Outpatient (CLI) | payer MEDICARE, MEDICAID ==
[2017-11-29 14:42] VITALS: BP 117/78
[~2021-04-22] MED LIST changes: +IOHEXOL 180 MG/ML 10 ML VIAL. ONE
--- NOTE | 2021-04-22 10:55 | PDOC ---
Progress Note - Pain Clinic Date of Service: DOS: DATE: 04/22/21 TIME: 10:51 Diagnosis: Dx: Right postop inguinal herniorrhaphy with chronic postoperative pain Left shoulder joint pain with osteoarthritis History or Present Illness: HPI: 66-year-old male returns for follow-up status post right ilioinguinal injections with only limited reduction in pain but very significant reduction by 75% only for about a week patient reports his main complaint is his left shoulder pain we discussed this when we talked with him last in February of this year patient reports still significant pain in the left arm with weightbearing repetitive motions trying to reach over his head with his left arm is very difficult also disturbing sleep fairly frequently. Patient reports is a 9 on scale 10 is worst least and average is a 9 today. Patient reports no new motor or sensory deficit but significant disability with the left upper extremity and painful with abduction and reaching as well as any weightbearing repetitive motions. Physical Exam: VS: Blood pressure is 135/89 pulse 93 respirations are 18 temperature 98.3 F weight is 188 pounds PE: PHYSICAL EXAMINATION: GENERAL: The patient is awake, alert, oriented, appropriate, very pleasant demeanor HEENT: Shows normocephalic, atraumatic. Extraocular movements are intact and symmetrical. Oral cavity: Mucous membranes moist and pink. Dentition is intact. NECK: Shows anterior throat supple without palpable lymphadenopathy noted. Swallow reflex symmetrical. CHEST: Shows normal on inspection. Breath sounds are clear bilaterally, no rales or rhonchi. HEART: Shows S1, S2 clear. No murmurs auscultated. ABDOMEN: Soft, nontender, nondistended, obese. No palpable organomegaly is noted. Well-healed surgical scars noted the right inguinal region with some mild tenderness with palpation over the anterior superior iliac spine and just medial and inferior to this but without radiation on palpation today. BACK: Shows spine grossly in the midline. Normal-appearing cervical lordotic curvature. There is slightly increased thoracic kyphosis, some minor flattening of the lumbar lordotic curvature. EXTREMITIES Upper extremities show deep tendon reflexes 2+ in the biceps and triceps tendons. Motor exam is 5 on a scale of 5 with right grip wrapper strength, biceps and triceps flexion and 5/5 on the left. Patient's left shoulder shows significant tenderness with palpation of the anterior aspect of the glenohumeral joint as well as difficulty with abduction past 45 degrees with pain reported with resistance right side shows normal rotation without difficulty or limitation. Peripheral pulses are 2+ radial. No peripheral edema is noted bilaterally. Upper extremities are warm and dry to touch, equal in color and appearance. SKIN: Shows warm and dry, good turgor. No edema. No sores, rashes or bruising throughout. Procedure: Procedure: Options were discussed with the patient. Patient's old chart was reviewed his his current medication regimen updated current review of systems updated today as well. We will proceed with a left intra-articular glenohumeral shoulder j oint injection today with fluoroscopic guidance. Risk were discussed including but not limited to bleeding infection possibility of intravascular injection sequelae spread to local anesthetic numbness side effects steroid medication exposure to fluoroscopy and portal scarring pain control. Patient understands wished to proceed. Patient will return to clinic in approximate 2 weeks for follow-up, was counseled as to return appointment activity level and side effects to be aware of. Medication Injected: Med Injected: Patient supine position under sterile prep and drape using C-arm fluoroscopic guidance patient's left shoulder was visualized and using 25-gauge needle 1% lidocaine was used to topically anesthetized area over the glenohumeral joint on the left. Using a 22-gauge Quincke needle with stylette the joint was entered under direct fluoroscopic visualization without difficulty stylet was removed at this time 2 cc of contrast was injected with good intra-articular spread in the shoulder joint without uptake. At this time 3 cc of 0.25% bupivacaine and 80 mg Depo-Medrol was then injected into the joint. Needle was removed and sterile bandage was applied. Patient tolerated the procedure well and had no complications. Condition at Discharge: Condition at Discharge: Condition at discharge stable, patient tolerated the procedure well and had no complications. CHEL SORIA MD April 22, 2021 10:55
--- NOTE | 2021-04-22 10:56 | PDOC4 ---
PROCEDURE Procedure Patient was consented for left intra-articular glenohumeral shoulder joint i njection. Risk were discussed including but not limited to bleeding infection possibility of intravascular injection sequelae spread local anesthetic numbness side effects steroid medications post fluoroscopy and portals regarding pain control. Patient understands wishes to proceed. Patient supine position under sterile prep and drape using C-arm fluoroscopic guidance patient's left shoulder was visualized and using 25-gauge needle 1% lidocaine was used to topically anesthetized area over the glenohumeral joint on the left. Using a 22-gauge Quincke needle with stylette the joint was entered under direct fluoroscopic visualization without difficulty stylet was removed at this time 2 cc of contrast was injected with good intra-articular spread in the shoulder joint without uptake. At this time 3 cc of 0.25% bupivacaine and 80 mg Depo-Medrol was then injected into the joint. Needle was removed and sterile bandage was applied. Patient tolerated the procedure well and had no complications. CHEL SORIA MD April 22, 2021 10:56
== END | disposition home or self-care (01) ==
LOC: PNCL 09:51
PROVIDERS: ATTEND Anesthesiology
DX: M19.012 Primary osteoarthritis, left shoulder (principal); G89.28 Other chronic postprocedural pain; I10 Essential (primary) hypertension; I25.10 Atherosclerotic heart disease of native coronary artery without angina pectoris; E78.00 Pure hypercholesterolemia, unspecified; E11.9 Type 2 diabetes mellitus without complications; Z79.82 Long term (current) use of aspirin; Z79.4 Long term (current) use of insulin; Z79.899 Other long term (current) drug therapy; Z98.890 Other specified postprocedural states
CPT/HCPCS: 20610; 77002; J1040; J3490; Q9965

== ENCOUNTER → 2022-04-08 | Outpatient (CLI) | payer MEDICARE, MEDICAID ==
[2017-11-29 14:42] VITALS: BP 117/78
[~2022-04-08] MED LIST changes: -BUPIVACAINE MPF 0.25% 10 ML VIAL. ONE; -IOHEXOL 180 MG/ML 10 ML VIAL. ONE; -LISI2.5T PO; +LISI2.5T12 PO; -methylPREDNISolone ACETATE 80 MG/ML VIAL. ONE
--- NOTE | 2022-04-08 15:07 | RAD ---
EXAM: Chest, 2 views. HISTORY: Short of breath. COMPARISON: 11/28/2017 FINDINGS: 2 views of the chest are obtained. There is no infiltrate, pleural effusion or pneumothorax . The heart is normal in size. There is slight eventration of the hemidiaphragms with associated basi lar atelectasis. IMPRESSION: No acute pulmonary finding. Electronically signed by: Holly Cortes MD (04/08/2022 3:04 PM) [id number]
== END ==
LOC: RAD 13:07
PROVIDERS: ATTEND Internal Medicine
DX: R06.02 Shortness of breath (principal)
CPT/HCPCS: 71046